=== PATIENT | male | born 1990 ===

== ENCOUNTER 2020-10-16 20:01 | Emergency (ER) | payer SELFPAY ==
[2020-10-16] MEDS ORDERED: Sodium Bicarbonate 8.4% 50 MEQ/50 ML Syringe IV ONE (20:03)
[2020-10-16] MEDS ORDERED: EPINEPHrine 1:10,000 1 MG/10 ML Syringe IOSS ONE (20:04)
[2020-10-16] MEDS ORDERED: EPINEPHrine 1:10,000 1 MG/10 ML Syringe IV ONE ×2 (20:08→20:13)
[2020-10-16] MEDS ORDERED: Naloxone 2 MG/2 ML Syringe IV ONE (20:13)
[2020-10-16] MEDS ORDERED: EPINEPHrine 1:10,000 1 MG/10 ML Syringe ONE (20:19)
[2020-10-16] MEDS ORDERED: Naloxone 2 MG/2 ML Syringe ONE (20:21)
[2020-10-16] MEDS ORDERED: Sodium Bicarbonate 8.4% 50 MEQ/50 ML Syringe ONE (20:22)
--- NOTE | 2020-10-16 20:23 | EDM.PDOC ---
ED HPI GENERAL MEDICAL PROBLEM - General Stated Complaint: CODE BLUE Time Seen by Provider: 10/16/20 20:01 Source of Information: Reports: EMS, EMS Notes Reviewed, Police, RN, RN Notes Reviewed History Limitations: Reports: Other (CPR in progress; Altered mental status) - History of Present Illness INITIAL COMMENTS - FREE TEXT/NARRATIVE: Saqib is a 30 y/o male who presents to the ED via [facility] with CPR in progress. Per EMS they were called a local home by patient's girlfriend as the patient experienced a witnessed collapse with unconsciousness. CPR was initiated by members of the household and was in progress upon EMS' arrival. EMS reports arrival at 1920; rhythm checked revealed asystole and CPR was continued with first epinephrine administered at 1935 following IO placement. Patient received a total of five rounds of epinephrine en route. Additionally, patient received two doses of Narcan. Per report, rhythm/pulse checks consistently revealed asystole therefore no defibrillation was performed. Patient arrived to this facility at 2000 with CPR still in progress. MARGARITO on chest delivering compressions; Paresh LMA to oral cavity with clear/brown secretions noted from bilateral nares with diminished breath sounds bilaterally. Pupils fixed and dilated upon assessment. Pulse/rhythm check immediately upon arrival revealed no pulse with asystole appreciated on the monitor; compressions resumed via MARGARITO and epinephrine administered. Sodium Bicarb administered. Paresh LMA was removed and ETT successfully placed by Richard Napoles PA-C; bilateral breath sounds appreciated. Patient received three complete rounds of high-quality CPR with asystole and no pulse appreciated at interval checks. Narcan administered. Last rhythm check at 2014 revealed asystole with no pulse. Pupils remain fixed and dilated. Circumoral cyanosis appreciated. Time of called by procedure writer at 2014. ED ROS GENERAL - Review of Systems Review Of Systems: Unable To Obtain Reason Not Obtained: CPR in progress ED EXAM, CPR - Physical Exam Exam: See Below Limited By: Altered Mental Status, Other (CPR in progress) General Appearance: Other (Nonresponsive; Compressions via MARGARITO; Respirations assisted via LMA and ambu bag) Eye Exam: Bilateral Eye: Abnormal EOM (Fixed), Abnormal Pupil (Dilated) Nose: Other (Clear, brown secretions from bilateral nares) Throat/Mouth: Perioral Cyanosis, Other (Respirations assisted via LMA and ambubag). No: No Airway Compromise Head: Atraumatic, Normocephalic Respiratory Chest: Respiratory Distress, Other (Respirations assisted via LMA and ambubag) Cardiovascular: Absent Heart Sounds (with pulse checks), Pulse with Compression, CPR In Progress GI/Abdominal Exam: Abnormal Bowel Sounds (Hypoactive). No: Rigid 0: Right Carotid, Left Carotid, Femoral (R), Femoral (L) Extremities: Mottled Neurological: Unresponsive, Unresponsive Skin Exam: Cool, Cyanosis, Mottled Course - Orders/Labs/Meds Orders: Active Orders 24 hr Category Date Time Status DRUG SCREEN URINE BIORAD [URCHEM] Urgent Lab 10/16/20 20:19 Ordered UA RFX CHACE AND CULT IF INDIC [URIN] Stat Lab 10/16/20 20:19 Ordered Labs: Laboratory Tests 10/16/20 10/16/20 10/16/20 Range/Units 20:11 20:11 20:11 WBC 5.5 (5.0-10.0) 10^3/uL RBC 4.56 L (4.6-6.2) 10^6/uL Hgb 14.5 (14.0-18.0) g/dL Hct 44.4 (40.0-54.0) % MCV 97.4 (80-100) fL MCH 31.8 (27.0-34.0) pg MCHC 32.7 L (33.0-35.0) g/dL Plt Count 234 (150-450) 10^3/uL Neut % (Auto) 35.7 L (42.2-75.2) % Lymph % (Auto) 51.7 H (20.5-50.1) % [place] % (Auto) 11.5 H (2-8) % Eos % (Auto) 0.4 L (1.0-3.0) % Baso % (Auto) 0.7 (0.0-1.0) % Sodium 144 (136-145) mmol/L Potassium 3.8 (3.5-5.1) mmol/L Chloride 101 (98-107) mmol/L Carbon Dioxide 19 L (21-32) mmol/L Anion Gap 27.8 H (7-13) mEq/L BUN 6 L (7-18) mg/dL Creatinine 1.48 H (0.70-1.30) mg/dL Est Cr Clr Drug Dosing TNP Estimated GFR (MDRD) 55 BUN/Creatinine Ratio 4.1 (No establ ref range) Glucose 265 H (70-99) mg/dL Calcium 8.5 (8.5-10.1) mg/dL Magnesium 2.1 (1.8-2.4) mg/dL Total Bilirubin 0.7 (0.2-1.0) mg/dL AST 519 H (15-37) U/L ALT 286 H (16-63) U/L Alkaline Phosphatase 131 H (46-116) U/L Troponin I < 0.017 (0.000-0.056) ng/mL Total Protein 5.5 L (6.4-8.2) g/dL Albumin 2.7 L (3.4-5.0) g/dL Globulin 2.8 Albumin/Globulin Ratio 0.96 Ethyl Alcohol < 3 (0) mg/dL Meds: Medications Discontinued Medications Generic Name Dose Route Start Last Admin Trade Name Freq PRN Reason Stop Dose Admin Epinephrine HCl Confirm 10/16/20 20:19 Epinephrine 1:10,000 1 Mg/10 Ml Syringe Administered 10/16/20 20:20 Dose 4 mg .ROUTE .STK-MED ONE Naloxone HCl Confirm 10/16/20 20:21 Naloxone 2 Mg/2 Ml Syringe Administered 10/16/20 20:22 Dose 2 mg .ROUTE .STK-MED ONE Sodium Bicarbonate Confirm 10/16/20 20:22 Sodium Bicarbonate 8.4% 50 Meq/50 Ml Syringe Administered 10/16/20 20:23 Dose 50 meq .ROUTE .STK-MED ONE - Re-Assessments/Exams Free Text/Narrative Re-Assessment/Exam: 10/16/20 Time of called by procedure writer at 2014. Departure - Departure Time of Disposition: 20:15 Disposition: 20 Clinical Impression: Cardiac arrest - Discharge Information - My Orders Last 24 Hours: My Active Orders 10/16/20 20:19 DRUG SCREEN URINE BIORAD [URCHEM] Urgent UA RFX CHACE AND CULT IF INDIC [URIN] Stat - Assessment/Plan Last 24 Hours: My Active Orders 10/16/20 20:19 DRUG SCREEN URINE BIORAD [URCHEM] Urgent UA RFX CHACE AND CULT IF INDIC [URIN] Stat
[2020-10-16 20:44] LABS: ANION GAP 27.8 mEq/L (7-13); CHLORIDE,CL 101 mmol/L (98-107); SODIUM,NA 144 mmol/L (136-145)
== END 2020-10-16 22:35 | disposition expired ==
LOC: DL.ED 20:01
DX: I46.9 Cardiac arrest, cause unspecified (principal)
CPT/HCPCS: 36415; 80053; 80307; 83735; 84484; 85025; 92950; 99285; 99285-25; J0171; J2310